=== PATIENT | female | born 2000 | race Caucasian/White ===

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

== ENCOUNTER → 2021-05-16 | Outpatient (CLI) | payer OTHER | LOC: RAD 16:24 | PROVIDERS: ATTEND Nurse Practitioner | DX: M51.37 Other intervertebral disc degeneration, lumbosacral region (principal); M48.07 Spinal stenosis, lumbosacral region ==

== ENCOUNTER 2021-06-28 16:22 | Emergency (ER) | payer OTHER ==
[~2021-06-28] VITALS: Ht 172.7 cm; Wt 81.7 kg
[2021-06-28 16:44] VITALS: BP 150/90
[2021-06-28] MEDS ORDERED: NOHOMEMEDICATIONS (16:48)
== END 2021-06-28 17:39 | disposition home or self-care (01) ==
LOC: ER 16:22
DX: R05.9 Cough, unspecified (principal); Z20.822 Contact with and (suspected) exposure to COVID-19